=== PATIENT | female | born 1955 | race Caucasian/White ===

== ENCOUNTER 2018-05-31 19:50 | Inpatient (IN) | payer OTHER ==
[~2018-05-31] VITALS: Ht 170.2 cm; Wt 98.2 kg
[2018-05-31 20:03] LABS: BASOPHILS % (AUTO) 1.1 % (0.0-5.0); EOSINOPHILS % (AUTO) 3.8 % (0.0-8.0); HEMATOCRIT 44.1 % (36-48); LYMPHOCYTES % (AUTO) 29.1 % (21.0-51.0); MEAN CORPUSCULAR HEMOGLOBIN 31.7 pg (27.0-33.0); MEAN CORPUSCULAR HGB CONC 34.3 g/dL (32.0-36.0); MEAN CORPUSCULAR VOLUME 92.4 fL (79-99); MONOCYTES % (AUTO) 10.1 % (3.0-13.0); NEUTROPHILS % (AUTO) 55.9 % (40.0-77.0); NUCLEATED RED BLOOD CELLS 0.2 % (0.0-0.19); PLATELET COUNT (AUTO) 235 K/uL (130-400); RED BLOOD CELL COUNT(AUTO) 4.77 MIL/uL (4.00-5.50); RED CELL DISTRIBUTION WIDTH 13.3 % (11.0-15.5); WHITE BLOOD COUNT (AUTO) 6.7 K/uL (4.8-10.8)
[2018-05-31 20:22] LABS: CREATININE 1.2 mg/dL (0.5-1.5)
[2018-05-31 20:25] LABS: INR 0.9 (0.85-1.15); PARTIAL THROMBOPLASTIN TIME 25.9 SEC (26.3-35.5); PROTHROMBIN TIME 9.5 SEC (9.6-11.6)
[2018-05-31 20:27] LABS: ALBUMIN 3.7 g/dL (3.5-5.0); BILIRUBIN,TOTAL 0.3 mg/dL (0.2-1.0)
[2018-05-31 20:55] LABS: APPEARANCE,URINE Clear (CLEAR); BILIRUBIN,URINE Negative (NEGATIVE); COLOR,URINE Yellow (YELLOW); GLUCOSE, URINE (UA) Negative (NEGATIVE); KETONES,URINE Negative (NEGATIVE); LEUKOCYTE ESTERASE ,URINE Negative (NEGATIVE); NITRATE,URINE Negative (NEGATIVE); OCCULT BLOOD,URINE Negative (NEGATIVE); PROTEIN,URINE Negative (NEGATIVE); UROBILINOGEN,URINE 0.2 mg/dL (0.2-1.0)
[2018-05-31] MEDS ORDERED: ASPIRIN 325 MG TABLET ONE (21:03)
[2018-05-31] MEDS ORDERED: ONDANSETRON HCL 4 MG/2 ML VIAL IV PRN (21:45)
[2018-05-31] MEDS ORDERED: ACETAMINOPHEN 325 MG TAB PO PRN (21:45)
[2018-05-31 23:15] VITALS: BP 168/80
[2018-05-31 23:54] LABS: HEMOGLOBIN A1C 5.2 % (4.0-6.0)
[2018-05-31 23:58] VITALS: BP 168/80
[2018-06-01] VITALS (8 sets, daily range): BP systolic 126–171; BP diastolic 69–101
[2018-06-01] MEDS ORDERED: SIMV40TA5 PO (00:42)
[2018-06-01] MEDS ORDERED: LEVO100T6 PO (00:42)
[2018-06-01] MEDS ORDERED: PROP40TA7 PO (00:42)
[2018-06-01] MEDS ORDERED: LISI10TA7 PO (00:42)
[2018-06-01 04:27] LABS: BASOPHILS % (AUTO) 0.8 % (0.0-5.0); HEMATOCRIT 40.2 % (36-48); MEAN CORPUSCULAR HEMOGLOBIN 31.1 pg (27.0-33.0); MEAN CORPUSCULAR HGB CONC 33.6 g/dL (32.0-36.0); MEAN CORPUSCULAR VOLUME 92.5 fL (79-99); MONOCYTES % (AUTO) 9.9 % (3.0-13.0); NEUTROPHILS % (AUTO) 52.3 % (40.0-77.0); PLATELET COUNT (AUTO) 195 K/uL (130-400); RED BLOOD CELL COUNT(AUTO) 4.35 MIL/uL (4.00-5.50); RED CELL DISTRIBUTION WIDTH 13.4 % (11.0-15.5); WHITE BLOOD COUNT (AUTO) 4.8 K/uL (4.8-10.8)
[2018-06-01 04:46] LABS: ALANINE AMINOTRANSFERASE 27 U/L (12-78); ASPARTATE AMINOTRANSFERASE 16 U/L (10-37); BILIRUBIN,TOTAL 0.3 mg/dL (0.2-1.0); CARBON DIOXIDE 25 mmol/L (21-32); CHLORIDE 107 mmol/L (101-111); CHOLESTEROL 170 mg/dL (<200); CREATININE 1.2 mg/dL (0.5-1.5); GLOMERULAR FILTR. RATE CALC 48 mL/min (>60); GLUCOSE,RANDOM 96 mg/dL (70-105); HDL CHOLESTEROL 34 mg/dL (35-85); LDL DIRECT 118 mg/dL (0-99); POTASSIUM 3.7 mmol/L (3.5-5.1); SODIUM SERUM 142 mmol/L (136-145); TOTAL PROTEIN, SERUM 6.2 g/dL (6.0-8.3); TRIGLYCERIDES 139 mg/dL (30-200); UREA NITROGEN, BLOOD 13 mg/dL (7-18)
[2018-06-01 04:52] LABS: CRP QUANTITATIVE < 2.00 mg/L (0.00-9.0)
[2018-06-01] MEDS ORDERED: GADODIAMIDE 10 MMOL/20 ML ML IV ONE (07:25)
[2018-06-01] MEDS: ASPIRIN 325 MG TABLET PO SCH ×2 (09:00→10:17)
[2018-06-01] MEDS: PROPRANOLOL HCL 20 MG TAB PO SCH ×2 (09:00→10:17)
[2018-06-01] MEDS: LEVOTHYROXINE 100 MCG TABLET PO SCH (09:00)
[2018-06-01] MEDS ORDERED: ASPIRIN 81MG TAB.CHEW PO SCH (09:00)
[2018-06-01] MEDS: FAMOTIDINE/PF 20 MG/2 ML VIAL IV SCH (10:16)
[2018-06-01] MEDS: LISINOPRIL 10 MG TABLET PO SCH (10:17)
[2018-06-01] MEDS ORDERED: ATORVASTATIN CALCIUM 20 MG TABLET PO SCH (21:00)
[2018-06-02 03:00] VITALS: BP 115/64
[2018-06-02 04:03] LABS: HEMATOCRIT 40.1 % (36-48); MEAN CORPUSCULAR HEMOGLOBIN 31.6 pg (27.0-33.0); MEAN CORPUSCULAR VOLUME 92.9 fL (79-99); PLATELET COUNT (AUTO) 201 K/uL (130-400); RED BLOOD CELL COUNT(AUTO) 4.32 MIL/uL (4.00-5.50); RED CELL DISTRIBUTION WIDTH 13.6 % (11.0-15.5); WHITE BLOOD COUNT (AUTO) 4.8 K/uL (4.8-10.8)
[2018-06-02 04:23] LABS: CREATININE 1.6 mg/dL (0.5-1.5); POTASSIUM 3.9 mmol/L (3.5-5.1)
[2018-06-02] MEDS: LEVOTHYROXINE 100 MCG TABLET PO SCH (06:16)
[2018-06-02 07:00] VITALS: BP 143/54
[2018-06-02] MEDS: ASPIRIN 325 MG TABLET PO SCH (08:18)
[2018-06-02] MEDS: PROPRANOLOL HCL 20 MG TAB PO SCH (08:18)
[2018-06-02] MEDS: LISINOPRIL 10 MG TABLET PO SCH (08:19)
[2018-06-02] MEDS: FAMOTIDINE/PF 20 MG/2 ML VIAL IV SCH (08:19)
[2018-06-02 11:00] VITALS: BP 131/73
[2018-06-02] MEDS ORDERED: AEC81 PO (17:24)
[2018-06-02] MEDS ORDERED: CLOP75TA14 PO (17:24)
[2018-06-02] MEDS ORDERED: ATOR20TA65 PO (17:24)
== END 2018-06-02 17:54 | disposition home or self-care (01) | DRG 69 ==
LOC: EDH 19:50 → EDHIP 19:51 → INTOOBSV 19:51 → OBSVTOIN 19:51 → 2AH 23:06
PROVIDERS: ADMIT Internal Medicine; ATTEND Internal Medicine
DX: G45.9 Transient cerebral ischemic attack, unspecified (principal); G81.94 Hemiplegia, unspecified affecting left nondominant side; I12.9 Hypertensive chronic kidney disease with stage 1 through stage 4 chronic kidney disease, or unspecified chronic kidney disease; N18.3 Chronic kidney disease, stage 3 (moderate); E78.5 Hyperlipidemia, unspecified; E03.9 Hypothyroidism, unspecified; G25.0 Essential tremor; I16.0 Hypertensive urgency; J32.0 Chronic maxillary sinusitis; Z79.82 Long term (current) use of aspirin
CPT/HCPCS: 36415; 70450; 70547; 70551; 80048; 80053; 80061; 81003; 82270; 82550; 82948; 83036; 83735; 84443; 84484; 85025; 85027; 85610; 85730; 86140; 87804; 92526; 92610; 93005; 93306; 97039; A9579; J3490

== ENCOUNTER → 2020-03-28 | Outpatient (CLI) | payer OTHER ==
[~2020-03-28] MED LIST: AEC81 PO; ATOR20TA65 PO; CLOP75TA14 PO; LEVO100T6 PO; LISI10TA7 PO; PROP40TA7 PO
== END | disposition home or self-care (01) ==
LOC: RAH 14:55
PROVIDERS: ATTEND Family Medicine
DX: G31.9 Degenerative disease of nervous system, unspecified (principal)
CPT/HCPCS: 70551

== ENCOUNTER → 2022-03-26 | Outpatient (CLI) | payer OTHER ==
[~2022-03-26] VITALS: Ht 17.8 cm; Wt 109.3 kg
[~2022-03-26] MED LIST changes: +LISI10TA24 PO; -LISI10TA7 PO
== END | disposition home or self-care (01) ==
LOC: DTH 10:15
PROVIDERS: ATTEND Surgery
DX: Z71.3 Dietary counseling and surveillance (principal); E78.00 Pure hypercholesterolemia, unspecified; I10 Essential (primary) hypertension; K76.0 Fatty (change of) liver, not elsewhere classified; G47.33 Obstructive sleep apnea (adult) (pediatric); E66.09 Other obesity due to excess calories; Z68.37 Body mass index [BMI] 37.0-37.9, adult
CPT/HCPCS: 97802

== ENCOUNTER → 2022-05-06 | Outpatient (CLI) | payer OTHER ==
[~2022-05-06] VITALS: Ht 17.8 cm; Wt 107.5 kg
== END | disposition home or self-care (01) ==
LOC: DTH 08:12
PROVIDERS: ATTEND Surgery
DX: Z71.3 Dietary counseling and surveillance (principal); E78.00 Pure hypercholesterolemia, unspecified; I10 Essential (primary) hypertension; G47.33 Obstructive sleep apnea (adult) (pediatric); K76.0 Fatty (change of) liver, not elsewhere classified; E66.09 Other obesity due to excess calories; Z68.37 Body mass index [BMI] 37.0-37.9, adult
CPT/HCPCS: 97803

== ENCOUNTER → 2022-05-28 | Outpatient (CLI) | payer OTHER | END | disposition home or self-care (01) | LOC: DTH 10:42 | PROVIDERS: ATTEND Surgery | DX: Z71.3 Dietary counseling and surveillance (principal); I10 Essential (primary) hypertension; E78.00 Pure hypercholesterolemia, unspecified; K76.0 Fatty (change of) liver, not elsewhere classified; G47.33 Obstructive sleep apnea (adult) (pediatric); E66.09 Other obesity due to excess calories; Z68.37 Body mass index [BMI] 37.0-37.9, adult | CPT/HCPCS: 97803 ==

== ENCOUNTER → 2023-02-08 | Outpatient (CLI) | payer OTHER ==
[~2023-02-08] MED LIST changes: +CLOP-31 PO; -CLOP75TA14 PO
== END | disposition home or self-care (01) ==
LOC: RAH 14:15
PROVIDERS: ATTEND Family Medicine
DX: S09.90XA Unspecified injury of head, initial encounter (principal); R59.1 Generalized enlarged lymph nodes; X58.XXXA Exposure to other specified factors, initial encounter; Y93.89 Activity, other specified; Y92.89 Other specified places as the place of occurrence of the external cause; Y99.8 Other external cause status
CPT/HCPCS: 70450

== ENCOUNTER → 2023-07-07 | Outpatient (CLI) | payer OTHER | END | disposition home or self-care (01) | LOC: SHCH 11:21 | PROVIDERS: ATTEND Internal Medicine Cardiovascular Disease | DX: R55 Syncope and collapse (principal); I10 Essential (primary) hypertension; E78.5 Hyperlipidemia, unspecified | CPT/HCPCS: 93306 ==

== ENCOUNTER 2024-06-17 11:18 | Emergency (ER) | payer OTHER ==
[~2024-06-17] VITALS: Ht 167.6 cm; Wt 90.7 kg
[2024-06-17] MEDS ORDERED: AZIT250T PO (11:29)
--- NOTE | 2024-06-17 11:30 | ERN ---
General Chief Complaint: Earache Stated Complaint: EARACHE Time Seen by MD: 11:20 History of Present Illness Initial Comments 68-year-old female who presents for sinus pain, rhinorrhea, ear pressure and sore throat. Possibly a low-grade fever at home. She reports she gets sinusitis frequently and this feels like a flare-up of sinusitis. No other medical or surgical history. Allergies: Coded Allergies: No Known Drug Allergies (Unverified Allergy, Unknown, 06/01/18) Home Meds Active Scripts Aspirin (ASPIRIN 81 MG ECTAB) 81 Mg Ectab, 81 MG PO DAILY for 30 Days, #30 TAB.EC Prov:DAYANA RODRIGUEZ Jr., MD 06/02/18 Clopidogrel Bisulfate (Plavix) 75 Mg Tablet, 75 MG PO DAILY for 30 Days, #30 TAB Prov:DAYANA RODRIGUEZ Jr., MD 06/02/18 Atorvastatin Calcium (Atorvastatin Calcium) 20 Mg Tablet, 40 MG PO HS for 30 Da ys, #30 TAB Prov:DAYANA RODRIGUEZ Jr., MD 06/02/18 Reported Medications Propranolol HCl (Propranolol HCl) 40 Mg Tablet, 40 MG PO DAILY, TAB 06/01/18 Levothyroxine Sodium (Synthroid) 100 Mcg Tablet, 100 MCG PO DAILY, TAB 06/01/18 Lisinopril (Lisinopril) 10 Mg Tablet, 10 MG PO DAILY, TAB 06/01/18 ROS Dictation CONSTITUTIONAL: Headache HEAD/FACE: No signs of trauma. EENT: Sinus discomfort RESPIRATORY: No cough, no orthopnea, no SOB, no stridor, no wheezing. CARDIOVASCULAR: No chest pain, no edema, no palpitations, no syncope. GASTROINTESTINAL/ABDOMINAL: No abdominal pain, no constipation, no diarrhea, no nausea, no vomiting. GENITOURINARY: No abnormal discharge, no dysuria, no frequent urination, no hematuria. No complaints of pain in the genitals. MUSCULOSKELETAL: No back pain, no gout, no joint pain, no joint swelling, no muscle pain, no muscle stiffness, no neck pain. INTEGUMENTARY: No change in color, no change in hair/nails, no dryness, no lesion, no lumps, no rash. NEUROLOGICAL/PSYCH: No anxiety, not depressed, no emotional problem, no headache, no numbness, no pre-existing deficit, no history of seizures, no tremors, no weakness. HEMATOLOGIC/LYMPHATIC: Not anemic, no history of blood clots, no apparent bleeding, no bruising, glands not swollen. All Systems Negative, Except as Noted. Physical Exam Physical Exam Dictation VITAL SIGNS: Reviewed. GENERAL APPEARANCE: Alert, oriented x3, no acute distress, obese. HEAD AND FACE: Non-traumatic. EYES: PERRL, pink conjunctivas, eyelid no trauma, anterior chamber clear. EARS: Pinnas intact and no signs of trauma or erythema. Ear canals clear and no discharge. TMs no erythema. NOSE: No discharge, no bleeding. OROPHARYNX: Mouth normal, teeth no caries, tongue pink. Pharynx clear, no erythema. Tonsils no exudates, no abscesses noted. Mucous membrane moist. NECK: Supple, non-tender, no thyromegaly, no masses, no JVD, no bruits. BREAST: Deferred. CHEST: No tenderness, no crepitus, no paradoxical movement, no retractions. LUNGS: Clear, well-ventilated, symmetric, no rales, no wheezing, no rhonchi, no stridor, good breath sounds bilaterally. HEART: Regular rate, regular rhythm, no murmur, no gallops. VASCULAR: No peripheral edema. ABDOMEN: Soft, positive bowel sounds, nondistended, no guarding, nontender, no rebound, no masses no hepatomegaly, no splenomegaly, no Hubbard's sign, no hernias. RECTAL: Deferred. GENITAL: Deferred. NEUROLOGICAL: Normal speech, gross motor function intact, gross sensory function intact. MUSCULOSKELETAL: Neck nontender, full range of motion, back nontender, full range of motion. EXTREMITIES: Nontender, full range of motion. SKIN: Color pink, dry, no turgor, no rash, no lacerations, no abrasions, no contusions. LYMPHATICS: Deferred. MDM CC: Sinus discomfort Historian: Patient Comorbidities: Frequent sinus infections Differential diagnosis: Allergic rhinitis, sinusitis, bacterial sinusitis, viral URI, other. Vital signs are stable No labs or imaging indicated We will give a dose of Solu-Medrol IM. She reports she has had bacterial sinusitis in the past, she was high-risk so we will give a dose of IM antibiotics and discharged with azithromycin. Patient is agreeable. ED Course Orders Procedure Category Date Status Time Ceftriaxone 1g Vial PHA 06/17/24 Transmitted (Rocephine 1g Inj) 11:30 Methylprednisolone PHA 06/17/24 Transmitted Succ 40mg (Solu-Medro 11:30 DX & DISP Disposition: Discharge Departure Impression: Primary Impression: Chronic left maxillary sinusitis Condition: Stable Scripts Azithromycin (Zithromax) 250 Mg Tablet 1 TAB PO AD for 5 Days, #6 TAB 0 Refills 2 the first day followed by 1 for days 2-5 Prov: CARLOS ALVAREZ DO 06/17/24 Additional Instructions: Your symptoms are consistent with a sinusitis. You received IM Solu-Medrol, which is a steroid, and a dose of IM Rocephin, which is an antibiotic, here in the emergency department. I have prescribed azithromycin, or syndesmotic. Take as prescribed. I recommend [id number] decongestant medication. You can also try Afrin spray or a daily Zyrtec. Please follow up with the primary doctor next week if you continue with symptoms. Referrals: KATI RUSSELL MD (PCP) CARLOS ALVAREZ DO Jun 17, 2024 11:30
[2024-06-17] MEDS: Solu-medROL 40MG VIAL IM ONE (11:40)
[2024-06-17] MEDS: cefTRIAXone 1G VIAL IM ONE (11:40)
[2024-06-17 12:35] VITALS: BP 152/88; PULSE 73; RESP 18; TEMP 97.9; O2SAT 98
== END 2024-06-17 12:35 | disposition home or self-care (01) ==
LOC: EDH 11:18
DX: J32.0 Chronic maxillary sinusitis (principal); Z79.02 Long term (current) use of antithrombotics/antiplatelets; Z79.82 Long term (current) use of aspirin; Z79.890 Hormone replacement therapy; Z79.899 Other long term (current) drug therapy
CPT/HCPCS: 99284; 96372 ×2; J0696; J2919